=== PATIENT | female | born 1985 | race Caucasian/White ===

== ENCOUNTER 2017-01-17 14:05 | Emergency (ER) | payer OTHER ==
[2017-01-17 14:23] VITALS: TEMP 97.5
[2017-01-17] MEDS ORDERED: IBUPROFEN 200 MG TAB PO ONE (14:31)
[2017-01-17] MEDS ORDERED: DIAZEPAM 5 MG TAB PO ONE ×2 (14:31→15:27)
[2017-01-17] MEDS ORDERED: OXYCODONE/APAP 5/325 TAB PO ONE (14:32)
--- NOTE | 2017-01-17 14:44 | EDPHY ---
H & P Time Seen by Provider: 01/17/17 14:20 HPI/ROS: This patient complains of severe neck pain. She explains that she awakened with mild right-sided neck ache this morning but that over the ensuing few hours the pain has become severe associated with muscle spasms where she can't really move her head. She tried 1 Aleve prior to arrival without significant improvement and reports ongoing severe pain. The pain worsens with attempts at movement. No other exacerbating factors. Her recent activities include bowling on Wednesday after which she did notice any pain and yesterday she mop the house with a new mop thinks this may have contributed as she felt very slight neck ache. She also got new pillows last week. No other injuries. ROS: Constitutional: No complaint plates including no fevers. HEENT: No recent URI symptoms or other complaints. Neuro: No headache. No numbness tingling or focal weakness. No bowel or bladder incontinence. Pulmonary: No shortness of breath or pleuritic pain Musculoskeletal: She has mid neck midline pain. No back pain. No extremity complaints. Integumentary: No skin rash. 7 point ROS is otherwise negative. Smoking Status: Never smoked Physical Exam: Physical Exam Vital signs are normal. General: No acute distress HEENT: Atraumatic. Eyes: Pupils equal and react to light. Extraocular motions are intact. Neck: Patient has evidence of torticollis clinically holding her head tilted toward the left unwilling to local after right, flex or extend due to increase in pain with any of those maneuvers. She has midline tenderness around C3-4. She has right trapezius spasm and tenderness. Lungs: No respiratory distress. Cardiac: Regular rate and rhythm with no murmur gallop or rub. Brisk capillary refill is intact throughout. Pulses are 2+ and symmetric in the affected extremity. Skin: No rash or pallor. Neuro: GCS 15. Patient has normal light touch sensory exam bilateral upper and lower extremities and 5/5 strength in hand intrinsic muscles, finger extension and structural steel erector. However she has diminished right biceps DTR. Right brachioradialis, triceps remained 2+ and symmetric with left brachioradialis triceps and left biceps 2+. Patellar and Achilles DTRs are 2+ symmetric bilaterally. Initial differential diagnosis: Torticollis from muscle spasm, disc herniation with C5-6 deficit/radiculopathy, bony abnormality, tumor or other lesion Constitutional: Initial Vital Signs Temperature (C) 36.4 C 01/17/17 14:12 Heart Rate 87 01/17/17 14:12 Respiratory Rate 18 01/17/17 14:12 Blood Pressure 123/75 H 01/17/17 14:12 O2 Sat (%) 98 01/17/17 14:12 O2 Delivery Mode Room Air Allergies/Adverse Reactions: sumatriptan [From Imitrex] Allergy (Verified 01/17/17 14:12) Home Medications: Medication Instructions Recorded Ibuprofen [Motrin (*)] 600 mg PO Q6 PRN #30 tab 01/17/17 Methocarbamol [Robaxin 750 mg (*)] 750 - 1,500 mg PO QID PRN #30 tab 01/17/17 Multivitamin 01/17/17 methylPREDNISolone [Medrol Dose 1 each PO AD #0 ea 01/17/17 Pola] oxyCODONE/APAP 5/325 [Percocet 1 - 2 tab PO Q4-6PRN PRN #20 tab 01/17/17 5/325 (*)] MDM/Departure - MDM Diagnostics: Cervical plain films of the neck: Normal by my interpretation Imaging: I viewed and interpreted images myself Medications Given: Discontinued Medications Diazepam (Valium) 5 mg PO EDNOW ONE Stop: 01/17/17 14:32 Last Admin: 01/17/17 14:39 Dose: 5 mg Ibuprofen (Motrin) 400 mg PO EDNOW ONE Stop: 01/17/17 14:32 Last Admin: 01/17/17 14:40 Dose: 400 mg Oxycodone/Acetaminophen (Percocet 5/325) 1 tab PO EDNOW ONE Stop: 01/17/17 14:33 Last Admin: 01/17/17 14:40 Dose: 1 tab ED Course/Re-evaluation: Course: Patient is treated with ibuprofen, Valium and Percocet with mild relief. I discussed her case with Dr. Davalos, neurosurgeon on-call due to her C5-6 radiculopathy on the right side. His office will call her to to arrange follow-up appointment in approximately 2 weeks. In the interim she will have a MRI neck if her symptoms are not improving on Medrol Dosepak, Robaxin and Percocet Discussion: Atraumatic onset of torticollis likely due to combination of activities new pillows. Cannot rule out disc herniation with radiculopathy given deficit in right biceps DTR. However, no other "red flag" findings on this patient. She understands the need to return to the emergency department if she has significant worsening despite the treatment plan. - Depart Disposition: Home, Routine, Self-Care Clinical Impression: Torticollis, acute, Cervical radiculopathy Condition: Good Instructions: Cervical Radiculopathy (ED), Spasmodic Torticollis (ED) Additional Instructions: Diagnosis: 1. Spasmodic torticollis of neck 2. Cervical radiculopathy Plan: Medrol Dosepak as prescribed Do not take nonsteroidal anti-inflammatories such as Aleve or ibuprofen while on the Medrol Dosepak but after he finished a Medrol Dosepak, start the ibuprofen or Aleve-2 tabs 3 times a day Methocarbamol muscle relaxant and Tylenol or Percocet in addition if needed. No driving, alcohol work on the muscle relaxant or the Percocet. If you have ongoing symptoms despite the treatment plan beyond the next 5 days or so, call [phone] to schedule an outpatient MRI Dr. tijerina's office-neurosurgeon will call you to arrange a follow-up appointment (for 2 weeks or so from now) for further evaluation for any ongoing symptoms. Prescriptions: Ibuprofen [Motrin (*)] 600 mg PO Q6 PRN #30 tab PRN Reason: Pain Methocarbamol [Robaxin 750 mg (*)] 750 - 1,500 mg PO QID PRN #30 tab PRN Reason: Muscle Spasms methylPREDNISolone [Medrol Dose Pola] 1 each PO AD #0 ea oxyCODONE/APAP 5/325 [Percocet 5/325 (*)] 1 - 2 tab PO Q4-6PRN PRN #20 tab PRN Reason: Pain Referrals: Alexandra Westbrook MD [Primary Care Provider] - As per Instructions Pepe Davlaos MD [Medical Doctor] - As per Instructions
[2017-01-17 16:07] VITALS: BP 103/69; PULSE 70; RESP 16; O2SAT 96
== END 2017-01-17 16:12 | disposition home or self-care (01) ==
LOC: CED 14:05
DX: M43.6 Torticollis (principal); M54.12 Radiculopathy, cervical region
CPT/HCPCS: 72050-PO